=== PATIENT | female | born 1995 | race Caucasian/White ===

== ENCOUNTER 2021-09-29 12:11 | Inpatient (IN) | payer SELFPAY ==
[~2021-09-29] VITALS: Ht 157.5 cm; Wt 54.6 kg
[2021-09-29 13:11] LABS: BASOPHILS % (AUTO) 0.5 % (0.0-2.0); EOSINOPHILS % (AUTO) 0.4 % (1.0-6.0); HEMATOCRIT 38.2 % (36-46); HEMOGLOBIN 13.1 g/dL (12.0-16.0); LYMPHOCYTES # (AUTO) 2.3 K/uL (1.0-4.8); LYMPHOCYTES % (AUTO) 25.6 % (22.0-44.0); MEAN CORPUSCULAR HEMOGLOBIN 32.2 pg (26.0-34.0); MEAN CORPUSCULAR HGB CONC 34.4 G/dL (31.0-37.0); MEAN CORPUSCULAR VOLUME 94 fL (80-100); MONOCYTES # (AUTO) 0.7 K/uL (0.1-1.0); MONOCYTES % (AUTO) 7.5 % (2.0-9.0); PLATELET COUNT (AUTO) 213 K/uL (150-450); RED BLOOD CELL COUNT(AUTO) 4.07 MIL/uL (4.00-5.20)
[2021-09-29 14:24] LABS: AMPHET/METH SCREEN,URINE NEGATIVE (NEGATIVE); BARBITURATE SCREEN, URINE NEGATIVE (NEGATIVE); BENZODIAZEPINES SCREEN,URINE NEGATIVE (NEGATIVE); CANNABINOID SCREEN,URINE POSITIVE (NEGATIVE); COCAINE SCREEN,URINE NEGATIVE (NEGATIVE); METHADONE SCREEN, URINE NEGATIVE (NEGATIVE); OPIATE SCREEN,URINE POSITIVE (NEGATIVE); PHENCYCLIDINE SCREEN,URINE NEGATIVE (NEGATIVE)
[2021-09-29 14:26] LABS: ANION GAP 9 mmol/L (8-16); CALCIUM, TOTAL 9.5 mg/dL (8.8-10.5); CARBON DIOXIDE 26 mmol/L (22-29); CHLORIDE 104 mmol/L (98-107); CREATININE 0.87 mg/dL (0.60-1.30); GLOMERULAR FILTR. RATE CALC > 60 mL/min (>60); GLUCOSE,RANDOM 102 mg/dL (70-110); POTASSIUM 4.2 mmol/L (3.5-5.1); SODIUM SERUM 139 mmol/L (136-145); UREA NITROGEN, BLOOD 14 mg/dL (7-18)
[2021-09-29 14:51] LABS: ALANINE AMINOTRANSFERASE 19 U/L (12-78); ALBUMIN 4.2 g/dL (3.4-5.0); ALKALINE PHOSPHATASE 55 U/L (46-116); ASPARTATE AMINOTRANSFERASE 16 U/L (15-37); BILIRUBIN,TOTAL 0.7 mg/dL (0.1-1.0); CREATINE KINASE, TOTAL ONLY 97 U/L (26-192); TOTAL PROTEIN, SERUM 7.3 g/dL (6.4-8.2)
[2021-09-29 15:47] LABS: HCG,QUANTITATIVE < 1 mIU/mL (0-6)
[2021-09-29 16:00] LABS: ACETAMINOPHEN < 2 mcg/mL (10-30)
[2021-09-29] MEDS ORDERED: GuaiFENesin/D-METHORPHAN [SUGAR-FREE] 200-20MG/10 ML SYRUP UDCUP PO PRN (17:00)
[2021-09-29] MEDS ORDERED: QUEtiapine FUMARATE 100 MG TABLET PO PRN (17:00)
[2021-09-29] MEDS ORDERED: MAGNESIUM HYDROXIDE SUSPENSION 30 ML UDCUP PO PRN (17:00)
[2021-09-29] MEDS ORDERED: PROMETHAZINE HCL 25 MG TABLET PO PRN (17:00)
[2021-09-29] MEDS ORDERED: ACETAMINOPHEN 325 MG TABLET PO PRN (17:00)
[2021-09-29] MEDS ORDERED: TUBERCULIN, PURIFIED PROTEIN DERIVATIVE 5 TU/0.1 ML SYRINGE ID ONE (17:00)
[2021-09-29] MEDS ORDERED: LOPERAMIDE HCL 2 MG CAPSULE PO PRN (17:00)
[2021-09-29] MEDS ORDERED: MAG HYDROX/AL HYDROX/SIMETH ES 30 ML SUSPENSION UDCUP PO PRN (17:00)
[2021-09-29] MEDS ORDERED: HydrOXYzine PAMOATE 50 MG CAPSULE PO PRN (17:00)
[2021-09-29 19:06] LABS: COVID AG,FIA SOURCE NASAL SWAB
[2021-09-29] MEDS ORDERED: HydrALAZINE HCL 20 MG/ML VIAL IVP ONE (21:00)
[2021-09-29] MEDS ORDERED: NITROGLYCERIN 2% (1 GM=INCH) PACKET TP ONE (21:00)
[2021-09-29] MEDS: LORazepam 2 MG TABLET PO PRN (21:41)
[2021-09-29] MEDS: ZOLPIDEM TARTRATE 10 MG TABLET PO PRN (22:12)
[2021-09-30] MEDS: LORazepam 2 MG TABLET PO PRN ×2 (06:17→12:33)
[2021-09-30 07:24] LABS: HEMOGLOBIN A1C 5.3 % (3.8-5.6)
[2021-09-30 07:44] LABS: THYROID STIMULATING HORMONE 2.39 uIU/mL (0.36-3.74)
[2021-09-30] MEDS: OMEGA-3/DHA/EPA/FISH OIL 1,000 MG CAPSULE PO SCH (12:27)
[2021-09-30] MEDS: FOLIC ACID 1 MG TABLET PO SCH (12:28)
[2021-09-30] MEDS: DULoxetine HCL 20 MG CAPSULE PO SCH (12:30)
[2021-09-30] MEDS: THIAMINE 100 MG TABLET PO SCH ×2 (12:30→16:01)
[2021-09-30] MEDS: MULTIVITAMINS WITH MINERALS, THERAPEUTIC TABLET PO SCH (12:33)
[2021-09-30 13:40] VITALS: BP 103/58
[2021-09-30 16:00] VITALS: BP 96/57
[2021-09-30] MEDS ORDERED: DULO20CA71 PO (16:45)
[2021-09-30] MEDS ORDERED: OMEG-108 PO (16:45)
[2021-09-30] MEDS ORDERED: MELA5TAB40 PO (16:45)
[2021-09-30] MEDS ORDERED: NALT50TA PO (16:47)
[2021-09-30] MEDS ORDERED: MELATONIN 5 MG TABLET PO SCH (21:00)
[2021-09-30] MEDS: ZOLPIDEM TARTRATE 10 MG TABLET PO PRN (23:08)
[2021-10-01] MEDS: LORazepam 2 MG TABLET PO PRN ×2 (04:07→09:18)
[2021-10-01 08:00] VITALS: BP 106/63
[2021-10-01] MEDS: FOLIC ACID 1 MG TABLET PO SCH (09:18)
[2021-10-01] MEDS: MULTIVITAMINS WITH MINERALS, THERAPEUTIC TABLET PO SCH (09:18)
[2021-10-01] MEDS: OMEGA-3/DHA/EPA/FISH OIL 1,000 MG CAPSULE PO SCH (09:18)
[2021-10-01] MEDS: DULoxetine HCL 20 MG CAPSULE PO SCH (09:19)
[2021-10-01] MEDS: THIAMINE 100 MG TABLET PO SCH (09:19)
[2021-10-01] MEDS ORDERED: NALT50TA PO (15:45)
[2021-10-01] MEDS ORDERED: MELA5TAB40 PO (15:45)
[2021-10-01] MEDS ORDERED: OMEG-108 PO (15:45)
[2021-10-01] MEDS ORDERED: DULO20CA71 PO (15:45)
== END 2021-10-01 12:55 | disposition home or self-care (01) | DRG 885 ==
LOC: EMS 12:11 → B2S 09-30 10:39 → 3EI 09-30 11:46
PROVIDERS: ADMIT Psychiatry & Neurology Psychiatry; ATTEND Psychiatry & Neurology Psychiatry
DX: F33.2 Major depressive disorder, recurrent severe without psychotic features (principal); R45.851 Suicidal ideations; F41.9 Anxiety disorder, unspecified; W18.30XA Fall on same level, unspecified, initial encounter; F43.10 Post-traumatic stress disorder, unspecified; D64.9 Anemia, unspecified; F43.20 Adjustment disorder, unspecified; F12.10 Cannabis abuse, uncomplicated; F17.210 Nicotine dependence, cigarettes, uncomplicated; Z20.822 Contact with and (suspected) exposure to COVID-19; Z55.9 Problems related to education and literacy, unspecified; Z59.9 Problem related to housing and economic circumstances, unspecified; Z63.9 Problem related to primary support group, unspecified; Z65.3 Problems related to other legal circumstances; Y93.89 Activity, other specified; Y92.89 Other specified places as the place of occurrence of the external cause; Y99.8 Other external cause status
CPT/HCPCS: 70450; 71045; 72125; 80053; 82550; 83036; 84439; 84443; 84484; 84702; 85025; 86592; 93005; 99285; G0480; G0481; Q9967; 36415-L1; 36415-TC